=== PATIENT | male | born 1950 | race Caucasian/White ===

== ENCOUNTER 2022-02-27 17:31 | Emergency (ER) | payer OTHER, MEDICARE, BC ==
[2022-02-27] MEDS ORDERED: Lidocaine 1% with EPINEPHrine 1:100,000 20 ML MDV INFILT ONE (17:32)
[2022-02-27] MEDS ORDERED: Bacitracin Oint 1 GM U/D Packet TOP ONE (17:33)
[2022-02-27] MEDS ORDERED: Diphtheria,Pertussis(Acell),Tetanus Vaccine 0.5 ML Syringe IM ONE (17:33)
[2022-02-27] MEDS ORDERED: Acetaminophen 500 MG Tab PO ONE (17:34)
== END 2022-02-27 18:50 | disposition home or self-care (01) ==
LOC: FB.ED 17:31
DX: S06.0X0A Concussion without loss of consciousness, initial encounter (principal); S01.81XA Laceration without foreign body of other part of head, initial encounter; Z23 Encounter for immunization; V84.4XXA Person injured while boarding or alighting from special agricultural vehicle, initial encounter
CPT/HCPCS: 12001; 12011; 90471; 90715; 99281; 99283-25; A9270-GY